=== PATIENT | male | born 1980 | race Caucasian/White ===

== ENCOUNTER 2025-06-05 09:34 | Emergency (ER) | payer OTHER ==
[~2025-06-05] VITALS: Ht 170.2 cm; Wt 77.1 kg
[2025-06-05 10:19] LABS: PLATELET COUNT (AUTO) 272 K/uL (152-348); RED BLOOD CELL COUNT(AUTO) 4.94 MIL/uL (4.06-5.63); RED CELL DISTRIBUTION WIDTH 13.0 % (12.1-16.2); WHITE BLOOD COUNT (AUTO) 10.2 K/uL (3.6-10.2)
[2025-06-05 10:29] LABS: CREATININE 0.9 mg/dL (0.6-1.3); SODIUM SERUM 137 mmol/L (136-145); UREA NITROGEN, BLOOD 15 mg/dL (7-18)
[2025-06-05 10:34] LABS: ASPARTATE AMINOTRANSFERASE 14 U/L (15-37); TOTAL PROTEIN, SERUM 7.6 g/dL (6.4-8.2)
[2025-06-05] MEDS ORDERED: PRED50TA PO (12:01)
[2025-06-05] MEDS ORDERED: ACET-3102 PO (12:01)
[2025-06-05 12:41] VITALS: BP 122/90; O2SAT 99
== END 2025-06-05 12:41 | disposition home or self-care (01) ==
LOC: ER 09:43
DX: R07.89 Other chest pain (principal); R03.0 Elevated blood-pressure reading, without diagnosis of hypertension; M79.10 Myalgia, unspecified site; R00.0 Tachycardia, unspecified; R00.2 Palpitations; R06.02 Shortness of breath; R09.89 Other specified symptoms and signs involving the circulatory and respiratory systems; R50.9 Fever, unspecified; R53.81 Other malaise; Z79.52 Long term (current) use of systemic steroids; Z20.822 Contact with and (suspected) exposure to COVID-19
CPT/HCPCS: 36415; 71045; 84484; 85025; 85730; A4606; A4663